=== PATIENT | male | born 1950 | race Caucasian/White ===

== ENCOUNTER 2018-03-18 10:15 | Emergency (ER) | payer MEDICARE, OTHER ==
--- NOTE | 2018-03-18 10:45 | UC ---
Skin Complaint HPI - HPI Summary HPI Summary: A 67 y/o M presents to ED with bulls eye rash behind the left knee onset two days ago. Denies: fever, chills, aches. Pt did not see a tick at any point. PMHx : [email or web address] RAM. - History of Current Complaint Chief Complaint: UCSkin Time Seen by Provider: 03/18/18 10:37 Stated Complaint: TICK BITE Hx Obtained From: Patient Onset/Duration: Lasting Days, Still Present Onset Severity: Mild Current Severity: Mild Pain Intensity: 0 Pain Scale Used: 0-10 Numeric Location: Other - LLE Character: Redness Associated Signs & Symptoms: Positive: Negative - Allergy/Home Medications Allergies/Adverse Reactions: Allergies Allergy/AdvReac Type Severity Reaction Status Date / Time No Known Allergies Allergy Verified 03/18/18 10:32 Home Medications: Home Medications Aspirin TAB* [Aspirin 325 MG TAB*] 325 mg PO DAILY 03/18/18 [History Confirmed 03/18/18] Dofetilide CAP* [Tikosyn CAP*] 125 mcg PO BID 03/18/18 [History Confirmed ] Review of Systems Constitutional: Negative Skin: Other - bulls eye rash LLE All Other Systems Reviewed And Are Negative: Yes PMH/Surg Hx/FS Hx/Imm Hx Previously Healthy: Yes Cardiovascular History: Atrial Fibrillation - Surgical History Surgical History: None - Family History Known Family History: Negative: Cardiac Disease - Social History Occupation: Retired Lives: With Family Alcohol Use: None Substance Use Type: None Smoking Status (MU): Never Smoked Tobacco Physical Exam - Summary Physical Exam Summary: General normal exam VITAL SIGNS: Reviewed. GENERAL: Patient is a well-developed and nourished MALE who is lying comfortable in the stretcher. Patient is not in any acute respiratory distress. HEAD AND FACE: Normocephalic EYES: PERRLA, EOMI x 2. EARS: Hearing grossly intact. MOUTH: Oropharynx within normal limits. NECK: Supple, trachea is midline, no adenopathy, no JVD, no carotid bruit. CHEST: Symmetric, no tenderness at palpation LUNGS: Clear to auscultation bilaterally. No wheezing or crackles. CVS: Regular rate and rhythm, S1 and S2 present, no murmurs or gallops appreciated. ABDOMEN: Soft, non-tender. Bowel sounds are normal. No abdominal abnormal pulsations. EXTREMITIES: Full ROM in all major joints, no edema, no cyanosis or clubbing. NEURO: Alert and oriented x 3. No acute neurological deficits. Speech is normal and follows commands. SKIN: Dry and warm, target lesion on LLE Triage Information Reviewed: Yes Vital Signs: Initial Vital Signs Temp 98 F 03/18/18 10:28 Pulse 62 03/18/18 10:28 Resp 18 03/18/18 10:28 BP 197/93 03/18/18 10:28 Pulse Ox 100 03/18/18 10:28 Vital Signs Reviewed: Yes Course/Dx - Course Course Of Treatment: The patient was found to have increased BP in UC. The patient will follow up with PCP for better control of BP. 67-year-old male with a target lesion resected secondary to a tick bite. The patient will be given a prescription for doxycycline for 21 days. Patient will follow with the primary care physician as needed. Patient is given a medically stable alert oriented 3. - Diagnoses Provider Diagnoses: tick bite Discharge - Sign-Out/Discharge Documenting (check all that apply): Patient Departure - Discharge Plan Condition: Stable Disposition: HOME Prescriptions: DOXYcycline CAP(*) [DOXYcycline 100MG CAP(*)] 100 mg PO BID #42 cap Patient Education Materials: Tick Bite (ED) Referrals: No Primary Care Phys,NOPCP [Primary Care Provider] - [facility] [place] [facility] [Outside] Additional Instructions: FOLLOW UP WITH YOUR PRIMARY CARE PROVIDER WITHIN ONE WEEK FOR HIGH BLOOD PRESSURE NOTED TODAY. - Billing Disposition and Condition Condition: STABLE Disposition: Home
== END 2018-03-18 10:49 | disposition home or self-care (01) ==
LOC: UCEAST 10:15
DX: S80.262A Insect bite (nonvenomous), left knee, initial encounter (principal); W57.XXXA Bitten or stung by nonvenomous insect and other nonvenomous arthropods, initial encounter; Y93.9 Activity, unspecified; Y92.9 Unspecified place or not applicable; I48.91 Unspecified atrial fibrillation; Z79.82 Long term (current) use of aspirin
CPT/HCPCS: 99202; G0463